=== PATIENT | female | born 1940 | race Caucasian/White ===

== ENCOUNTER 2021-11-27 18:01 | Inpatient (IN) | payer MEDICARE, MEDICAID ==
[~2021-11-27] VITALS: Ht 152.4 cm; Wt 101.6 kg
[2021-11-27 18:31] VITALS: BP 108/54
[2021-11-27 18:50] LABS: BASO % 0.3 % (0.0-1.0); EOS # 0.1 10*3/uL (0.0-0.4); EOS % 0.9 % (1.0-4.0); HEMATOCRIT 45.7 % (37.0-47.0); LYMPH # 2.2 10*3/uL (1.3-4.4); LYMPH % 25.1 % (27.0-41.0); MEAN CELL VOLUME 90.9 fl (81.0-99.0); MEAN CORPUSCULAR HGB CONC 31.9 g/dl (33.0-37.0); MEAN PLATELET VOLUME 9.4 fl (9.6-12.3); MONO # 0.6 10*3/uL (0.1-1.0); MONO % 6.3 % (3.0-9.0); NEUT # 5.8 10*3/uL (2.3-7.9); NEUT % 66.2 % (47.0-73.0); PLATELET COUNT AUTOMATED 322 10*3/uL (130-400); RED BLOOD COUNT 5.03 10*6/uL (4.10-5.10); RED CELL DISTRI WIDTH 14.7 % (0-14.5); WHITE BLOOD COUNT 8.8 10*3/uL (4.8-10.8)
[2021-11-27 19:16] LABS: ALKALINE PHOSPHATASE 109 U/L (45-117); BUN 27 mg/dl (7-24); CHLORIDE 105 mmol/L (98-107); CREATININE 1.11 mg/dL (0.55-1.02); POTASSIUM 4.2 mmol/L (3.5-5.1); SGOT/AST 36 IU/L (3-35); SGPT/ALT 50 U/L (12-78); SODIUM 138 mmol/L (136-145); TOTAL PROTEIN 8.3 gm/dL (6.4-8.2)
[2021-11-27 19:18] LABS: ETHYL ALCOHOL < 3.0 mg/dl (<3)
[2021-11-27 20:49] LABS: BILIRUBIN Negative (Negative); BLOOD Negative (Negative); CLARITY Clear (Clear); COLOR Yellow (Yellow); GLUCOSE Negative (Negative); KETONE Trace (Negative); LEUKO ESTERASE Negative (Negative); NITRITE Negative (Negative); PH 6.5 (4.5-8.0); SPECIFIC GRAVITY 1.015 (1.001-1.030)
[2021-11-27 20:57] LABS: URINE AMPHETAMINES < 1000 (1000ng/ml); URINE BARBITURATES < 200 (200ng/ml); URINE BENZODIAZEPINES < 200 (200ng/ml); URINE CANNABINOIDS (THC) < 50 (50ng/ml); URINE COCAINE < 300 (300ng/ml); URINE METHADONE < 300 (300ng/ml); URINE OPIATES < 300 (300ng/ml)
[2021-11-27 20:58] LABS: URINE PHENCYCLIDINE < 25 (25ng/ml)
[2021-11-27 21:08] LABS: BACTERIA 1+; COARSE GRANULAR CAST 0-2; EPITHELIAL CELLS 0-2; MUCOUS 1+
[2021-11-27 21:30] VITALS: BP 100/62
[2021-11-28] MEDS ORDERED: GABAPENTIN600 MG PO (00:46)
[2021-11-28 06:28] LABS: BASO % 0.2 % (0.0-1.0); EOS # 0.1 10*3/uL (0.0-0.4); HEMATOCRIT 41.5 % (37.0-47.0); LYMPH # 0.8 10*3/uL (1.3-4.4); LYMPH % 18.4 % (27.0-41.0); MEAN CELL VOLUME 90.4 fl (81.0-99.0); MEAN CORPUSCULAR HGB 29.2 pg (27.0-31.0); MEAN CORPUSCULAR HGB CONC 32.3 g/dl (33.0-37.0); MEAN PLATELET VOLUME 9.4 fl (9.6-12.3); MONO # 0.6 10*3/uL (0.1-1.0); MONO % 12.7 % (3.0-9.0); NEUT # 2.8 10*3/uL (2.3-7.9); NEUT % 64.6 % (47.0-73.0); PLATELET COUNT AUTOMATED 228 10*3/uL (130-400); RED BLOOD COUNT 4.59 10*6/uL (4.10-5.10); RED CELL DISTRI WIDTH 14.6 % (0-14.5); WHITE BLOOD COUNT 4.4 10*3/uL (4.8-10.8)
[2021-11-28 06:50] LABS: ALKALINE PHOSPHATASE 95 U/L (45-117); BUN 24 mg/dl (7-24); CHLORIDE 105 mmol/L (98-107); CHOLESTEROL 119 mg/dL (<200); CREATININE 0.92 mg/dL (0.55-1.02); LDL CHOLESTEROL 55 mg/dL (9-159); POTASSIUM 4.4 mmol/L (3.5-5.1); SGOT/AST 30 IU/L (3-35); SGPT/ALT 37 U/L (12-78); SODIUM 138 mmol/L (136-145); TOTAL PROTEIN 7.1 gm/dL (6.4-8.2); TRIGLYCERIDES 108 mg/dl (<150)
[2021-11-28] MEDS ORDERED: TYLENOL325 M1 PO (07:41)
[2021-11-28] MEDS ORDERED: BENADRYL ALLERG25 M4 PO (07:42)
[2021-11-28] MEDS ORDERED: CLONIDINE HCL0.1 MG PO (07:43)
[2021-11-28] MEDS ORDERED: COLACE CLEAR50 MG PO (07:45)
[2021-11-28] MEDS ORDERED: FIBERCON625 MG PO (07:45)
[2021-11-28] MEDS ORDERED: CYMBALTA60 MG PO (07:46)
[2021-11-28] MEDS ORDERED: GEMTESA75 MG PO (07:47)
[2021-11-28] MEDS ORDERED: LANTUS SOL100 UNIT/1 SC ×2 (07:49→07:50)
[2021-11-28] MEDS ORDERED: INSULIN LI100 UNIT/1 SQ (07:51)
[2021-11-28] MEDS ORDERED: LEVOTHYROXINE50 MCG PO (07:52)
[2021-11-28] MEDS ORDERED: ZESTRIL10 MG PO (07:53)
[2021-11-28] MEDS ORDERED: CLARITIN10 MG PO (07:53)
[2021-11-28] MEDS ORDERED: TOPROL XL50 M1 PO (07:55)
[2021-11-28] MEDS ORDERED: ANTIFUNGAL POWD71 GM T (07:57)
[2021-11-28] MEDS ORDERED: MILK OF MA400 MG/5 M PO (07:59)
[2021-11-28 08:00] VITALS: BP 137/54
[2021-11-28] MEDS ORDERED: HYDROCODONE-AC1 EAC1 PO (08:00)
[2021-11-28] MEDS ORDERED: PRAVASTATIN SOD20 MG PO (08:01)
[2021-11-28] MEDS ORDERED: ROBAFEN100 MG/51 PO (08:06)
[2021-11-28] MEDS ORDERED: PROLIA60 MG/M1 SC (08:06)
[2021-11-28] MEDS ORDERED: SENNA8.8 MG/5 M PO (08:07)
[2021-11-28] MEDS ORDERED: TRAZODONE50 MG PO (08:08)
[2021-11-28] MEDS ORDERED: VISTARIL25 MG PO (08:09)
[2021-11-28] MEDS ORDERED: VITAMIN D3125 MCG PO (08:10)
[2021-11-28] MEDS ORDERED: XARE20MG PO (08:10)
[2021-11-28] MEDS ORDERED: ABILIFY2 MG PO (08:11)
[2021-11-28 08:36] LABS: VITAMIN D, 25-HYDROXY 40.6 ng/mL (30-100)
[2021-11-28 20:00] VITALS: BP 117/62
[2021-11-29 07:42] VITALS: BP 112/77
[2021-11-29 08:00] VITALS: BP 112/77
[2021-11-29 20:00] VITALS: BP 153/69
[2021-11-30 07:19] VITALS: BP 101/73
[2021-11-30 20:00] VITALS: BP 112/63
[2021-12-01 07:43] VITALS: BP 120/55
[2021-12-01 20:00] VITALS: BP 110/55
[2021-12-02 07:43] VITALS: BP 128/64
[2021-12-02 20:00] VITALS: BP 100/78
[2021-12-03 07:00] VITALS: BP 118/62
[2021-12-03 20:00] VITALS: BP 119/64
[2021-12-04 07:18] VITALS: BP 109/57
[2021-12-04 20:00] VITALS: BP 115/70
[2021-12-05 08:00] VITALS: BP 131/77
[2021-12-05 08:29] VITALS: BP 94/68
[2021-12-05 08:36] VITALS: BP 131/77
[2021-12-05] MEDS ORDERED: ARIPIPRAZOLE10 MG PO (08:51)
[2021-12-05] MEDS ORDERED: DULOXETINE HCL60 MG PO (08:51)
[2021-12-05] MEDS ORDERED: ROZEREM8 MG PO (08:51)
[2021-12-05] MEDS ORDERED: VITAMIN D3125 MC1 PO (08:51)
[2021-12-05] MEDS ORDERED: NOVOLOG FL100 UNIT/2 SC (12:10)
[2021-12-05] MEDS ORDERED: LIDODERM1 EACH T (13:47)
[2021-12-05] MEDS ORDERED: ZANAFLEX4 M1 PO (13:48)
== END 2021-12-05 15:15 | DRG 885 ==
LOC: ED 18:01 → 3N 21:07
PROVIDERS: Nurse Practitioner Family; ADMIT Psychiatry & Neurology Psychiatry; ATTEND Psychiatry & Neurology Psychiatry
DX: F33.9 Major depressive disorder, recurrent, unspecified (principal); E43 Unspecified severe protein-calorie malnutrition; N17.0 Acute kidney failure with tubular necrosis; E11.65 Type 2 diabetes mellitus with hyperglycemia; I48.21 Permanent atrial fibrillation; Z68.41 Body mass index [BMI] 40.0-44.9, adult; F41.9 Anxiety disorder, unspecified; F43.22 Adjustment disorder with anxiety; I25.10 Atherosclerotic heart disease of native coronary artery without angina pectoris; E11.42 Type 2 diabetes mellitus with diabetic polyneuropathy; E03.9 Hypothyroidism, unspecified; K21.9 Gastro-esophageal reflux disease without esophagitis; I10 Essential (primary) hypertension; E11.649 Type 2 diabetes mellitus with hypoglycemia without coma; E66.01 Morbid (severe) obesity due to excess calories; F43.21 Adjustment disorder with depressed mood; Z88.2 Allergy status to sulfonamides; Z88.5 Allergy status to narcotic agent; Z79.1 Long term (current) use of non-steroidal anti-inflammatories (NSAID); Z79.899 Other long term (current) drug therapy; Z20.822 Contact with and (suspected) exposure to COVID-19

== ENCOUNTER 2022-11-20 17:03 | Inpatient (IN) | payer OTHER, MEDICARE ==
[~2022-11-20] VITALS: Ht 157.4 cm; Wt 94.6 kg
[~2022-11-20 17:03] MED LIST: ABILIFY2 MG PO; ANTIFUNGAL POWD71 GM T; ARIPIPRAZOLE10 MG PO; BENADRYL ALLERG25 M4 PO; CLARITIN10 MG PO; CLONIDINE HCL0.1 MG PO; COLACE CLEAR50 MG PO; CYMBALTA60 MG PO; DULOXETINE HCL60 MG PO; FIBERCON625 MG PO; GABAPENTIN600 MG PO; GEMTESA75 MG PO; HYDROCODONE-AC1 EAC1 PO; INSULIN LI100 UNIT/1 SQ; LANTUS SOL100 UNIT/1 SC; LEVOTHYROXINE50 MCG PO; LIDODERM1 EACH T; MILK OF MA400 MG/5 M PO; NOVOLOG FL100 UNIT/2 SC; PRAVASTATIN SOD20 MG PO; PROLIA60 MG/M1 SC; ROBAFEN100 MG/51 PO; ROZEREM8 MG PO; SENNA8.8 MG/5 M PO; TOPROL XL50 M1 PO; TRAZODONE50 MG PO; TYLENOL325 M1 PO; VISTARIL25 MG PO; VITAMIN D3125 MC1 PO; VITAMIN D3125 MCG PO; XARE20MG PO; ZANAFLEX4 M1 PO; ZESTRIL10 MG PO
[2022-11-20 17:22] VITALS: BP 132/78
[2022-11-20 17:48] LABS: BASO # 0.1 10*3/uL (0.0-0.1); BASO % 0.5 % (0.0-1.0); EOS # 0.2 10*3/uL (0.0-0.4); EOS % 2.2 % (1.0-4.0); HEMATOCRIT 41.6 % (37.0-47.0); LYMPH # 2.3 10*3/uL (1.3-4.4); MEAN CELL VOLUME 97.9 fl (81.0-99.0); MEAN CORPUSCULAR HGB 31.3 pg (27.0-31.0); MEAN PLATELET VOLUME 9.9 fl (9.6-12.3); MONO # 0.8 10*3/uL (0.1-1.0); MONO % 7.1 % (3.0-9.0); NEUT # 7.5 10*3/uL (2.3-7.9); NEUT % 68.6 % (47.0-73.0); PLATELET COUNT AUTOMATED 252 10*3/uL (130-400); RED BLOOD COUNT 4.25 10*6/uL (4.10-5.10); RED CELL DISTRI WIDTH 14.7 % (0-14.5); WHITE BLOOD COUNT 10.9 10*3/uL (4.8-10.8)
[2022-11-20 18:03] LABS: BUN 21 mg/dl (9-23); CHLORIDE 101 mmol/L (98-107); CPK 56 U/L (34-171); ETHYL ALCOHOL < 3.0 mg/dl (<3); POTASSIUM 4.4 mmol/L (3.4-5.1)
[2022-11-20 19:14] LABS: BILIRUBIN Negative (Negative); BLOOD Negative (Negative); CLARITY Turbid (Clear); COLOR Yellow (Yellow); GLUCOSE Negative (Negative); KETONE Trace (Negative); LEUKO ESTERASE 3+ (Negative); NITRITE Positive (Negative); PH 5.5 (4.5-8.0)
[2022-11-20 19:21] LABS: URINE AMPHETAMINES Negative (1000ng/ml); URINE BARBITURATES Negative (200ng/ml); URINE BENZODIAZEPINES Negative (200ng/ml); URINE CANNABINOIDS (THC) Negative (50ng/ml); URINE COCAINE Negative (300ng/ml); URINE METHADONE Negative (300ng/ml); URINE OPIATES Positive (300ng/ml); URINE PHENCYCLIDINE Negative (25ng/ml)
[2022-11-20 19:23] LABS: BACTERIA 3+; WBC TNTC wbc/hpf (0-5)
[2022-11-20 23:05] VITALS: BP 114/52
[2022-11-21] MEDS ORDERED: ALBUTEROL0.63 MG/3 INH (00:59)
[2022-11-21] MEDS ORDERED: CYMBALTA30 MG PO (01:12)
[2022-11-21] MEDS ORDERED: ATIVAN1 MG PO (01:20)
[2022-11-21] MEDS ORDERED: LOPRESSOR25 MG PO (01:25)
[2022-11-21] MEDS ORDERED: DIGOX125 MCG PO (01:34)
[2022-11-21] MEDS ORDERED: DEPAKOTE250 MG PO (01:36)
[2022-11-21] MEDS ORDERED: ENTRESTO 24 MG1 EACH PO (01:38)
[2022-11-21] MEDS ORDERED: EXELON1 EAC1 T (01:38)
[2022-11-21] MEDS ORDERED: NAMENDA10 MG PO (01:40)
[2022-11-21] MEDS ORDERED: MIRALAX119 GM PO (01:43)
[2022-11-21] MEDS ORDERED: REPAGLINIDE2 M1 PO (01:45)
[2022-11-21] MEDS ORDERED: VISTARIL50 MG PO (01:46)
[2022-11-21 07:07] LABS: THYROID STIM HORMONE (HS) 3.11 uIU/ml (0.550-4.780)
[2022-11-21 07:20] LABS: VITAMIN D, 25-HYDROXY 50.8 ng/mL (30-100)
[2022-11-21 07:22] VITALS: BP 120/56
[2022-11-21 07:40] VITALS: BP 120/56
[2022-11-21 14:00] VITALS: BP 120/56
[2022-11-21 20:00] VITALS: BP 137/68
[2022-11-22 08:00] VITALS: BP 104/56
[2022-11-22 14:00] VITALS: BP 104/56
[2022-11-22 20:00] VITALS: BP 108/52
[2022-11-23 07:40] VITALS: BP 119/65
[2022-11-23 20:00] VITALS: BP 106/41
[2022-11-24 08:31] VITALS: BP 94/59
[2022-11-24 20:00] VITALS: BP 133/59
[2022-11-25 07:32] VITALS: BP 104/50
[2022-11-25 20:00] VITALS: BP 109/72
[2022-11-26 06:48] LABS: BASO # 0.1 10*3/uL (0.0-0.1); BASO % 0.8 % (0.0-1.0); EOS # 0.3 10*3/uL (0.0-0.4); EOS % 4.1 % (1.0-4.0); HEMATOCRIT 44.7 % (37.0-47.0); LYMPH # 2.3 10*3/uL (1.3-4.4); LYMPH % 30.4 % (27.0-41.0); MEAN CELL VOLUME 101.6 fl (81.0-99.0); MEAN CORPUSCULAR HGB 31.6 pg (27.0-31.0); MEAN CORPUSCULAR HGB CONC 31.1 g/dl (33.0-37.0); MEAN PLATELET VOLUME 10.2 fl (9.6-12.3); MONO # 0.6 10*3/uL (0.1-1.0); MONO % 7.6 % (3.0-9.0); NEUT # 4.2 10*3/uL (2.3-7.9); NEUT % 56.6 % (47.0-73.0); PLATELET COUNT AUTOMATED 232 10*3/uL (130-400); RED CELL DISTRI WIDTH 14.3 % (0-14.5); WHITE BLOOD COUNT 7.4 10*3/uL (4.8-10.8)
[2022-11-26 07:53] VITALS: BP 118/64
[2022-11-26 08:13] LABS: ALKALINE PHOSPHATASE 67 U/L (46-116); BUN 19 mg/dl (9-23); CHLORIDE 103 mmol/L (98-107); POTASSIUM 5.1 mmol/L (3.4-5.1); SGPT/ALT 10 U/L (10-49); TOTAL PROTEIN 6.8 gm/dL (6.0-8.0)
[2022-11-26 19:45] VITALS: BP 112/62
[2022-11-27 07:52] VITALS: BP 116/62
[2022-11-27 20:00] VITALS: BP 117/76
[2022-11-28 07:51] VITALS: BP 106/44
[2022-11-28 20:00] VITALS: BP 109/38
[2022-11-29 07:23] VITALS: BP 127/63
[2022-11-29 20:00] VITALS: BP 112/58
[2022-11-30 07:15] VITALS: BP 119/66
[2022-11-30 20:00] VITALS: BP 124/76
[2022-12-01 08:00] VITALS: BP 108/50
[2022-12-01 20:00] VITALS: BP 118/72
[2022-12-02 07:29] VITALS: BP 126/57
[2022-12-02 20:00] VITALS: BP 123/82
[2022-12-03 17:04] LABS: BASO # 0.1 10*3/uL (0.0-0.1); BASO % 0.9 % (0.0-1.0); EOS # 0.4 10*3/uL (0.0-0.4); EOS % 6.4 % (1.0-4.0); HEMATOCRIT 41.7 % (37.0-47.0); LYMPH # 2.5 10*3/uL (1.3-4.4); MEAN CELL VOLUME 97.9 fl (81.0-99.0); MEAN CORPUSCULAR HGB 31.7 pg (27.0-31.0); MEAN CORPUSCULAR HGB CONC 32.4 g/dl (33.0-37.0); MEAN PLATELET VOLUME 10.1 fl (9.6-12.3); MONO # 0.5 10*3/uL (0.1-1.0); MONO % 7.9 % (3.0-9.0); NEUT # 3.2 10*3/uL (2.3-7.9); NEUT % 47.2 % (47.0-73.0); PLATELET COUNT AUTOMATED 247 10*3/uL (130-400); RED BLOOD COUNT 4.26 10*6/uL (4.10-5.10); RED CELL DISTRI WIDTH 15.2 % (0-14.5); WHITE BLOOD COUNT 6.8 10*3/uL (4.8-10.8)
[2022-12-03 17:31] LABS: BILIRUBIN Negative (Negative); BLOOD Negative (Negative); CLARITY Cloudy (Clear); COLOR Yellow (Yellow); GLUCOSE Negative (Negative); KETONE Trace (Negative); LEUKO ESTERASE 3+ (Negative); NITRITE Negative (Negative)
[2022-12-03 17:36] LABS: BUN 20 mg/dl (9-23); CHLORIDE 103 mmol/L (98-107); POTASSIUM 4.6 mmol/L (3.4-5.1)
[2022-12-03 17:54] LABS: BACTERIA 3+; EPITHELIAL CELLS TNTC; WBC TNTC wbc/hpf (0-5)
[2022-12-03 20:00] VITALS: BP 109/68
[2022-12-04 08:00] VITALS: BP 106/76
[2022-12-04 20:00] VITALS: BP 112/56; BP 144/65
[2022-12-05 08:11] VITALS: BP 102/60
[2022-12-05 09:12] LABS: BASO % 0.7 % (0.0-1.0); EOS # 0.3 10*3/uL (0.0-0.4); EOS % 4.6 % (1.0-4.0); HEMATOCRIT 42.6 % (37.0-47.0); LYMPH # 2.1 10*3/uL (1.3-4.4); LYMPH % 33.7 % (27.0-41.0); MEAN CELL VOLUME 97.9 fl (81.0-99.0); MEAN CORPUSCULAR HGB CONC 32.6 g/dl (33.0-37.0); MEAN PLATELET VOLUME 9.9 fl (9.6-12.3); MONO # 0.4 10*3/uL (0.1-1.0); MONO % 6.6 % (3.0-9.0); NEUT # 3.3 10*3/uL (2.3-7.9); NEUT % 54.1 % (47.0-73.0); PLATELET COUNT AUTOMATED 232 10*3/uL (130-400); RED BLOOD COUNT 4.35 10*6/uL (4.10-5.10); RED CELL DISTRI WIDTH 15.3 % (0-14.5); WHITE BLOOD COUNT 6.1 10*3/uL (4.8-10.8)
[2022-12-05 09:59] LABS: BUN 21 mg/dl (9-23); CHLORIDE 105 mmol/L (98-107); POTASSIUM 4.5 mmol/L (3.4-5.1)
[2022-12-05 20:00] VITALS: BP 112/62
[2022-12-06 06:23] LABS: BASO # 0.1 10*3/uL (0.0-0.1); BASO % 0.6 % (0.0-1.0); EOS # 0.4 10*3/uL (0.0-0.4); EOS % 4.4 % (1.0-4.0); HEMATOCRIT 43.9 % (37.0-47.0); LYMPH # 2.9 10*3/uL (1.3-4.4); LYMPH % 36.2 % (27.0-41.0); MEAN CELL VOLUME 99.5 fl (81.0-99.0); MEAN CORPUSCULAR HGB 31.5 pg (27.0-31.0); MEAN CORPUSCULAR HGB CONC 31.7 g/dl (33.0-37.0); MEAN PLATELET VOLUME 10.8 fl (9.6-12.3); MONO # 0.5 10*3/uL (0.1-1.0); MONO % 5.9 % (3.0-9.0); NEUT # 4.2 10*3/uL (2.3-7.9); NEUT % 52.6 % (47.0-73.0); PLATELET COUNT AUTOMATED 249 10*3/uL (130-400); RED BLOOD COUNT 4.41 10*6/uL (4.10-5.10); RED CELL DISTRI WIDTH 15.3 % (0-14.5); WHITE BLOOD COUNT 7.9 10*3/uL (4.8-10.8)
[2022-12-06 07:28] LABS: BUN 18 mg/dl (9-23); CHLORIDE 104 mmol/L (98-107); POTASSIUM 5.4 mmol/L (3.4-5.1)
[2022-12-06] MEDS ORDERED: LORAZEPAM1 MG PO (09:32)
[2022-12-06] MEDS ORDERED: MIRTAZAPINE15 M2 PO (09:32)
[2022-12-06] MEDS ORDERED: MEMANTINE HCL10 MG PO (09:32)
[2022-12-06] MEDS ORDERED: DRONABINOL2.5 MG PO (09:32)
[2022-12-06] MEDS ORDERED: RIVASTIGMINE1 EAC2 T (09:32)
[2022-12-06 20:00] VITALS: BP 90/58
[2022-12-07 06:32] LABS: BUN 20 mg/dl (9-23); CHLORIDE 102 mmol/L (98-107); POTASSIUM 5.1 mmol/L (3.4-5.1)
[2022-12-07 07:20] VITALS: BP 105/43
== END 2022-12-07 08:23 | disposition hospice, home (50) | DRG 885 ==
LOC: ED 17:03 → 3N 22:42
PROVIDERS: Internal Medicine; Physician Assistant; Registered Nurse; ADMIT Psychiatry & Neurology Psychiatry; ATTEND Psychiatry & Neurology Psychiatry
DX: F33.2 Major depressive disorder, recurrent severe without psychotic features (principal); E43 Unspecified severe protein-calorie malnutrition; J96.10 Chronic respiratory failure, unspecified whether with hypoxia or hypercapnia; E11.65 Type 2 diabetes mellitus with hyperglycemia; L89.323 Pressure ulcer of left buttock, stage 3; N39.0 Urinary tract infection, site not specified; I25.10 Atherosclerotic heart disease of native coronary artery without angina pectoris; I48.91 Unspecified atrial fibrillation; R62.7 Adult failure to thrive; Z20.822 Contact with and (suspected) exposure to COVID-19; L89.156 Pressure-induced deep tissue damage of sacral region; F03.90 Unspecified dementia, unspecified severity, without behavioral disturbance, psychotic disturbance, mood disturbance, and anxiety; F41.1 Generalized anxiety disorder; R41.0 Disorientation, unspecified; R41.9 Unspecified symptoms and signs involving cognitive functions and awareness; E11.42 Type 2 diabetes mellitus with diabetic polyneuropathy; E03.9 Hypothyroidism, unspecified; K21.9 Gastro-esophageal reflux disease without esophagitis; I10 Essential (primary) hypertension; B96.20 Unspecified Escherichia coli [E. coli] as the cause of diseases classified elsewhere; Z66 Do not resuscitate; Z51.5 Encounter for palliative care; Z88.2 Allergy status to sulfonamides; Z88.8 Allergy status to other drugs, medicaments and biological substances; Z79.4 Long term (current) use of insulin; Z68.38 Body mass index [BMI] 38.0-38.9, adult